=== PATIENT | female | born 1950 | race Caucasian/White ===

== ENCOUNTER 2022-07-09 09:42 | Outpatient (CLI) | payer MEDICARE, SELFPAY ==
--- NOTE | 2022-07-09 10:15 | CRLHL7_ITS ---
For Patients: As a result of the Century Cures Act, medical imaging exams and procedure reports are released immediately into your electronic medical record. You may view this report before your referring provider. If you have questions, please contact your health care provider. BILATERAL SCREENING MAMMOGRAM WITH COMPUTER-AIDED DETECTION AND TOMOSYNTHESIS TECHNIQUE: CC and MLO views were obtained. These mammographic images have been obtained using full-field digital technique. These mammographic images were interpreted with the benefit of computer-aided detection. Breast Tomosynthesis was used in this interpretation. COMPARISON FILM: 06/07/21, 05/23/20, 02/10/18. FINDINGS: There are scattered areas of fibroglandular density IMPRESSION: There is no radiographic evidence for malignancy. ASSESSMENT: BI-RADS Category 2: Benign RECOMMENDATION: Routine screening mammogram in 1 year. A lay language report of this examination will be provided to the patient. Jonathan York M.D. Diagnostic Radiologist [email or web address] MONY/Dictated by: Jonathan York MD @ 07/09/2022 11:59:00 AM (Electronically Signed)
== END 2022-07-09 09:43 | disposition home or self-care (01) ==
LOC: MAMMO 09:46
PROVIDERS: PCP Physician Assistant Medical; Visit Provider Physician Assistant Medical
DX: Z12.31 Encounter for screening mammogram for malignant neoplasm of breast (principal)
CPT/HCPCS: 77063; 77067

== ENCOUNTER 2022-07-23 14:25 | Outpatient (CLI) | payer MEDICARE, SELFPAY ==
[2022-07-23 12:37] LABS: Albumin* 4.6 g/dL (3.3-5.0); Chloride* 108 mmol/L (96-114); Potassium* 4.9 mmol/L (3.6-5.1); Sodium* 143 mmol/L (135-149)
[2022-07-23 12:39] LABS: Bilirubin Total* 0.4 mg/dL (0.1-1.5); Carbon Dioxide* 26 mmol/L (20-32); Cholesterol* 182 mg/dL (90-199); Creatinine* 0.9 mg/dL (0.5-1.5); Estimated Glomerular Filt Rate 68 ml/min
[2022-07-23 12:40] LABS: Alanine Aminotransferase* 15 U/L (4-35); Alkaline Phosphatase* 66 U/L (40-150); Aspartate Amino Transferase* 32 U/L (12-35); Blood Urea Nitrogen* 25 mg/dL (7-30); Calcium* 10.1 mg/dL (8.4-10.6); Glucose* 103 mg/dL (60-115); Total Protein* 7.2 g/dL (6.0-8.3); Triglycerides* 220 mg/dL (40-149)
[2022-07-23 12:41] LABS: HDL Cholesterol* 51 mg/dL (>=50); LDL Cholesterol Calculated 87 mg/dL (<100)
[2022-07-25 13:24] LABS: Vitamin D 25 Hydroxy* 52 ng/mL (30-80)
[2022-07-25 13:38] LABS: TSH With Reflex to FT4* 0.775 uIU/mL (0.270-4.200)
[2022-07-25 13:54] LABS: Vitamin B12* 928 pg/mL (243-894)
== END 2022-07-23 14:26 | disposition home or self-care (01) ==
PROVIDERS: PCP Physician Assistant Medical; Visit Provider Physician Assistant Medical
DX: Z00.00 Encounter for general adult medical examination without abnormal findings (principal); E78.5 Hyperlipidemia, unspecified; R53.83 Other fatigue
CPT/HCPCS: 80053; 80061; 82306; 82607; 84443

== ENCOUNTER 2023-07-10 08:54 | Outpatient (CLI) | payer MEDICARE, SELFPAY ==
--- NOTE | 2023-07-10 09:15 | CRLHL7_ITS ---
For Patients: As a result of the Cures Act, medical imaging exams and procedure reports are released immediately into your electronic medical record. You may view this report before your referring provider. If you have questions, please contact your health care provider. BILATERAL SCREENING MAMMOGRAM WITH COMPUTER-AIDED DETECTION AND TOMOSYNTHESIS TECHNIQUE: CC and MLO views were obtained. These mammographic images have been obtained using full-field digital technique. These mammographic images were interpreted with the benefit of computer-aided detection. Breast Tomosynthesis was used in this interpretation. COMPARISON FILM: 07/09/22, 06/07/21, 05/23/20. FINDINGS: There are scattered areas of fibroglandular density IMPRESSION: There is no radiographic evidence for malignancy. ASSESSMENT: BI-RADS Category 2: Benign RECOMMENDATION: Routine screening mammogram in 1 year. A lay language report of this examination will be provided to the patient. Jonathan York M.D. Diagnostic Radiologist [email or web address] SUE/amelia Transcribed: 3:28 p.tobin cisneros/Dictated by: Jonathan York MD @ 07/10/2023 1:06:00 PM (Electronically Signed)
== END 2023-07-10 08:55 | disposition home or self-care (01) ==
LOC: MAMMO 08:55
PROVIDERS: PCP Physician Assistant Medical; Visit Provider Physician Assistant Medical
DX: Z12.31 Encounter for screening mammogram for malignant neoplasm of breast (principal)
CPT/HCPCS: 77063; 77067

== ENCOUNTER 2023-08-11 07:45 | Outpatient (CLI) | payer MEDICARE, SELFPAY | END 2023-08-11 07:46 | disposition home or self-care (01) | LOC: NFLDREF 08-13 16:29 | PROVIDERS: PCP Physician Assistant Medical; Referring Provider Physician Assistant Medical; Visit Provider Physician Assistant Medical | DX: Z00.00 Encounter for general adult medical examination without abnormal findings (principal); E78.2 Mixed hyperlipidemia; K76.0 Fatty (change of) liver, not elsewhere classified | CPT/HCPCS: 80053; 80061; 84443 ==

== ENCOUNTER 2023-08-27 14:07 | Outpatient (CLI) | payer MEDICARE, SELFPAY ==
--- NOTE | 2023-08-27 14:30 | CRLHL7_ITS ---
For Patients: As a result of the Century Cures Act, medical imaging exams and procedure reports are released immediately into your electronic medical record. You may view this report before your referring provider. If you have questions, please contact your health care provider. DXA BONE MINERAL DENSITY STUDY Reason for exam: Asymptomatic menopausal state. Current height (in): 60.0. Weight (lb): 195.0. Menopause age: 51. Ethnicity: White. 1. Have you had a previous hip or vertebral fracture? No. 2. Have you had any fractures during your adult life which did not result from significant trauma (e.g., auto accident)? No. 3. Did either of your parents have a hip fracture? No. 4. Do you smoke? No. 5. Have you ever taken Glucocorticoids? No. 6. Do you have rheumatoid arthritis? No. 7. Do you have secondary osteoporosis? No. 8. Do you drink 3 or more alcoholic drinks per day? No. 9. Are you being treated for osteoporosis? No. 10. Have you ever taken any of the following medications: Actonel, Evista, Fosamax, Miacalcin, Reclast, Boniva, Forteo, HRT (i.e. estrogen/hormone therapy), Protelos, Prolia, Vitamin D, Calcium, other ??? please specify. ANSWER: Yes, vitamin D, multi vitamin, calcium. 11. Do you have any of the following medical conditions: Anorexia or bulimia, asthma or emphysema, end stage renal disease, hyperparathyroidism, any seizure disorders, cancer, inflammatory bowel diseases, hysterectomy, other ??? please specify. ANSWER: Yes, hysterectomy. 12. What was your maximum height (inches)? 61. 13. Do you perform weight bearing exercise regularly? Yes. 14. Do you regularly consume dairy products? Yes. 15. Do you drink caffeinated beverages? No. 16. At what age did your period start? 15. 17. Are you premenopausal? No. 18. How many full term pregnancies have you had? 2. 19. Have you ever missed your period for more than 6 months in a row (not including or menopause)? No. TECHNIQUE: Bone mineral density study was performed using the [facility]. FINDINGS: The results of the study expressed as bone mineral density (BMD) are as follows: Lumbar spine L1 to L3: BMD: 0.952 g/cm2. T-score: -0.6. Z-score: 1.6. Neck Left: BMD: 0.706 g/cm2. T-score: -1.3. Z-score: 0.6. Right: BMD: 0.729 g/cm2. T-score: -1.1. Z-score: 0.8. Total Left: BMD: 0.894 g/cm2. T-score: -0.4. Z-score: 1.2. Right: BMD: 0.931 g/cm2. T-score: -0.1. Z-score: 1.5. IMPRESSION: Osteopenia. *Comparison exams done prior to 03/2020 were performed on different unit, [employer]. COMPARISON: Compared with scan of 07/25/2020, the bone mineral density has decreased by 2.6 percent at the spine and decreased by 0.7 percent at the hip. Compared with scan of 03/01/2018, the bone mineral density has decreased by 5.9 percent at the spine and decreased by 3.4 percent at the hip. FRAX 10-year Fracture Risk Major Osteoporotic Fracture: 9.0 percent Hip Fracture: 1.2 percent Reported Risk Factors: [place] () Neck BMD=0.706, BMI=38.1 Jonathan York M.D. Diagnostic Radiologist [email or web address] DSM/pjt PT/Dictated by: Jonathan York MD @ 08/28/2023 12:41:00 PM (Electronically Signed)
== END 2023-08-27 14:08 | disposition home or self-care (01) ==
LOC: RAD 14:08
PROVIDERS: PCP Physician Assistant Medical; Visit Provider Physician Assistant Medical
DX: Z78.0 Asymptomatic menopausal state (principal); M85.89 Other specified disorders of bone density and structure, multiple sites
CPT/HCPCS: 77080

== ENCOUNTER 2024-02-17 09:30 | Outpatient (RCR) | payer MEDICARE, SELFPAY ==
--- NOTE | 2024-01-12 09:54 | PT.OPE ---
PT [place] Outpatient Eval PT [facility] Outpatient Eval Start: 01/12/24 08:48 Freq: Status: Active Protocol: Document 01/12/24 08:49 LSL (Rec: 01/12/24 09:20 LSL [id number]) E-signed By Emili Bronson PT Physical Therapy Outpatient Evaluation Insurance Information Recert Due Date 04/11/24 Insurance Name Medicare B Medical Diagnosis L knee primary OA Treating Diagnosis pain, weakness, instability, impaired balance, impaired gait Subjective Subjective Pt. reports she's been having L knee pain for a number of years and recently aggravated it while stepping and turning. However it is now feeling better. Intermittently it is sharp and feels like it is going to give out and sometimes it feels that way without the pain. She needs to have another fusion in her R foot and is trying to get her L knee in shape so she can have that surgery because it is NWB for an extended number of weeks after the foot surgery. Symptoms of instability occur in the upper lateral torres area below knee and feels like if I push it in it helps. Stairs are sometimes not easy, both ascending and descending. 12 steps in her house between floors but most of her living is on one floor with laundry in the basement. Normally complete elliptical every other day 2x/day 10-15 minutes . Also enjoy walking and biking when the weather is nicer, but this giving out sensation is a concern for both of these activities. PMH: R ankle fused 20+ years ago. Pain Comments 0/10 best, 5/10 worst, 3/10 today Date of Last Physician Visit 01/04/24 Current Work Status Retired Precautions Weight Bearing Status Full Weight Bearing Therapy Limitations/Systems Review Not Limited Objective Range of Motion AROM 1/0/135 Strength Knee - B quad, HS 5/5 Hip - B hip abduction 3+/5, R hip extension 5/5, L 3+/5 Swelling Joint Line R 47.5 cm, L 45 cm Palpation lateral joint line mid to posterior tender and posterior medial joint liner helper, mid to distal ITB tender on L more so as compared to R Balance & Gait SLS - R 3 sec , L less than a second with trendelenberg GAIT - trendelenberg Assessment Assessment/Impression Pt. is a 73 y/o female who presents with signs and symptoms consistent with lateral compartment OA in her L knee with additional issues of ITB tightness and hip weakness that are likely contributory to her knee pain. Her hip weakness is leading to both altered gait and balance. She has normal knee ROM and no visible swelling. PT will consist of strengthening, NM re-ed and manual therapy to address her strength and soft tissue issues. Additionally we talked about nutrition and increasing her protein intake to help build muscle and her fiber intake for general health and tracking this on a nutrition she so she can see where she can make improvements. Primary Functional Limitations inability to do stairs, walk without feeling knee instability Plan of Care Rehabilitation Potential Good Physical Therapy Goals SHORT TERM GOALS: (4 weeks) 1. Pt. to improve hip strength to 4/5 to assist in gait and stability. 2. Pt. able to complete SLB for 5 seconds on each leg. 3. Pt. to report decreased difficulty ascending stairs. CORRECTION GOALS: (8 weeks) 1. Pt. to have 5/5 hip strength to assist in gait and stability. 2. Pt. able to balance for 15 seconds on each leg to decrease risk of falls and improve gait. 3. Pt. able to ascend and descend stairs without complaints of feeling like her knee will give out. 4. Pt. reports incidence of 1x /week or less of pain and instability feeling in her knee so she feels safe riding her bike or going for a walk. Coordination/Communication With Referral Source Treatment Plan/Direct Interventions Manual Therapy,Neuromuscular Re-ed,Self-Care/Home Management,Therapeutic Exercises Frequency/Duration 2x/week 4 weeks Patient Will Be Discharged From Therapy Completion of LTG(s),Skills Plateau,Independent w/HEP, Independently Progressing Evaluation Billing Untimed Code Treatment Minutes 25 Complexity Low Certification Information Initial Certification Date 01/12/24 Ending Certification Date 04/11/24 Provider Signature Shows Agreement With POC & Medical Necessity Physician Signature & Date Requested Please Sign/Date Here Physician Comment/Change : Physician NPI Number #
== END 2024-06-16 23:59 | disposition home or self-care (01) ==
PROVIDERS: PCP Physician Assistant Medical; Visit Provider Orthopaedic Surgery
DX: M17.12 Unilateral primary osteoarthritis, left knee (principal); Z51.89 Encounter for other specified aftercare
CPT/HCPCS: 97110; 97161

== ENCOUNTER 2025-01-03 07:30 | Outpatient (CLI) | payer MEDICARE, SELFPAY | END 2025-01-03 07:31 | disposition home or self-care (01) | LOC: NFLDREF 01-04 03:16 | PROVIDERS: PCP Physician Assistant Medical; Referring Provider Physician Assistant Medical; Visit Provider Physician Assistant Medical | DX: E78.2 Mixed hyperlipidemia (principal); Z13.29 Encounter for screening for other suspected endocrine disorder | CPT/HCPCS: 80053; 80061; 84443 ==

== ENCOUNTER 2025-04-03 10:58 | Outpatient (CLI) | payer MEDICARE, SELFPAY ==
--- NOTE | 2025-04-03 11:30 | CRLHL7_ITS ---
For Patients: As a result of the Century Cures Act, medical imaging exams and procedure reports are released immediately into your electronic medical record. You may view this report before your referring provider. If you have questions, please contact your health care provider. INDICATION: BILATERAL SCREENING MAMMOGRAM, ASYMPTOMATIC 74 Y/O FEMALE COMPARISON: 07/10/2023, 07/09/2022, 06/07/2021 TECHNIQUE: Digital mammogram in CC and MLO projections including computer-aided detection (CAD) and tomosynthesis. BREAST COMPOSITION: There are scattered areas of fibroglandular density. FINDINGS: No suspicious findings. ASSESSMENT: BI-RADS 2 Benign RECOMMENDATION: Annual screening mammogram. A lay language report of this examination will be provided to the patient. Dictated by: Jonathan York MD @ 04/03/2025 11:31:07 (Electronically Signed)
== END 2025-04-03 10:59 | disposition home or self-care (01) ==
LOC: MAMMO 10:58
PROVIDERS: PCP Physician Assistant Medical; Visit Provider Physician Assistant Medical
DX: Z12.31 Encounter for screening mammogram for malignant neoplasm of breast (principal)
CPT/HCPCS: 77063; 77067

== ENCOUNTER 2025-08-23 13:20 | Outpatient (CLI) | payer MEDICARE, SELFPAY ==
--- NOTE | 2025-08-23 14:00 | CRLHL7_ITS ---
For Patients: As a result of the Century Cures Act, medical imaging exams and procedure reports are released immediately into your electronic medical record. You may view this report before your referring provider. If you have questions, please contact your health care provider. XR DXA Bone Mineral Density (BMD) Reason for exam: Follow-up osteopenia. Current height (in): 61.0. Weight (lb): 180.0. Menopause age: 51. Ethnicity: White. 1. Have you had a previous hip or vertebral fracture? No. 2. Have you had any fractures during your adult life which did not result from significant trauma (e.g., auto accident)? No. 3. Did either of your parents have a hip fracture? No. 4. Do you smoke? No. 5. Have you ever taken Glucocorticoids? No. 6. Do you have rheumatoid arthritis? No. 7. Do you have secondary osteoporosis? No. 8. Do you drink 3 or more alcoholic drinks per day? No. 9. Are you being treated for osteoporosis? No. 10. Have you ever taken any of the following medications: Actonel, Evista, Fosamax, Miacalcin, Reclast, Boniva, Forteo, HRT (i.e. estrogen/hormone therapy), Protelos, Prolia, Vitamin D, Calcium, other ??? please specify. ANSWER: Yes, vitamin D, multivitamin, calcium. 11. Do you have any of the following medical conditions: Anorexia or bulimia, asthma or emphysema, end stage renal disease, hyperparathyroidism, any seizure disorders, cancer, inflammatory bowel diseases, hysterectomy, other ??? please specify. ANSWER: Yes, partial hysterectomy. 12. What was your maximum height (inches)? 62. 13. Do you perform weight bearing exercise regularly? Yes. 14. Do you regularly consume dairy products? Yes. 15. Do you drink caffeinated beverages? No. 16. At what age did your period start? 15. 17. Are you premenopausal? No. 18. How many full term pregnancies have you had? 2. 19. Have you ever missed your period for more than 6 months in a row (not including or menopause)? No. TECHNIQUE: Bone mineral density study was performed using the [facility]. FINDINGS: The results of the study expressed as bone mineral density (BMD) are as follows: Lumbar spine L1 to L3: BMD: 0.968 g/cm2. T-score: -0.5. Z-score: 1.9. Neck Left: BMD: 0.714 g/cm2. T-score: -1.2. Z-score: 0.8. Right: BMD: 0.682 g/cm2. T-score: -1.5. Z-score: 0.5. Total Left: BMD: 0.932 g/cm2. T-score: -0.1. Z-score: 1.7. Right: BMD: 0.977 g/cm2. T-score: 0.3. Z-score: 2.0. IMPRESSION: Osteopenia. *Comparison exams done prior to 03/2020 were performed on different unit, [employer]. COMPARISON: Compared with scan of 08/27/2023, the bone mineral density has increased by 1.7 percent at the spine and increased by 4.6 percent at the hip. Compared with scan of 03/01/2018, the bone mineral density has decreased by 4.3 percent at the spine and increased by 1.0 percent at the hip. FRAX 10-year Fracture Risk Major Osteoporotic Fracture: 10 percent Hip Fracture: 1.9 percent Reported Risk Factors: [place] () Neck BMD=0.682, BMI=34.0 Estephanie Messina M.D. Body/Diagnostic Radiologist [email or web address] PITO/carmen / bM/Dictated by: Estephanie Messina MD @ 08/24/2025 3:31:00 AM (Electronically Signed)
== END 2025-08-23 13:21 | disposition home or self-care (01) ==
LOC: RAD 13:21
PROVIDERS: PCP Physician Assistant Medical; Visit Provider Physician Assistant Medical
DX: M85.80 Other specified disorders of bone density and structure, unspecified site (principal); M85.89 Other specified disorders of bone density and structure, multiple sites
CPT/HCPCS: 77080